=== PATIENT | male | born 1950 | race Caucasian/White ===

== ENCOUNTER → 2017-04-30 | Outpatient (CLI) | payer MEDICARE ==
[2017-04-30 14:51] LABS: BUN 17 mg/dL (7-18)
[2017-04-30 14:52] LABS: GFR (ESTIMATED) 75 ML/MIN (>60)
[2017-04-30 16:25] LABS: HEMOGLOBIN 14.7 g/dL (14.1-18.0)
[2017-04-30 16:26] LABS: LYMPH # 1.5 K/mm3 (0.7-4.5)
== END ==
LOC: CARL-LAB 08:29
PROVIDERS: Internal Medicine Adolescent Medicine
DX: I10 Essential (primary) hypertension (principal); I63.50 Cerebral infarction due to unspecified occlusion or stenosis of unspecified cerebral artery

== ENCOUNTER → 2017-05-14 | Outpatient (CLI) | payer MEDICARE ==
[2017-05-14 13:59] LABS: HEMOGLOBIN 15.1 g/dL (14.1-18.0); LYMPH # 1.8 K/mm3 (0.7-4.5); LYMPH % 22.4 % (10-50)
[2017-05-14 14:10] LABS: BUN 12 mg/dL (7-18); GFR (ESTIMATED) 85 ML/MIN (>60)
== END ==
LOC: CARL-LAB 07:48
PROVIDERS: Internal Medicine Adolescent Medicine
DX: I10 Essential (primary) hypertension (principal); I63.50 Cerebral infarction due to unspecified occlusion or stenosis of unspecified cerebral artery